=== PATIENT | female | born 1960 | race Caucasian/White ===

== ENCOUNTER → 2017-02-12 | Outpatient (CLI) | payer MEDICAID | END | disposition home or self-care (01) | LOC: RAD 16:12 | PROVIDERS: ATTEND Nurse Practitioner Family | DX: K76.0 Fatty (change of) liver, not elsewhere classified (principal); K82.8 Other specified diseases of gallbladder; R16.1 Splenomegaly, not elsewhere classified | CPT/HCPCS: 76700 ==

== ENCOUNTER 2017-08-02 16:03 | Emergency (ER) | payer MEDICAID ==
[~2017-08-02] VITALS: Ht 167.6 cm; Wt 76.5 kg
[~2017-08-02 16:03] MED LIST: FOLI-17 PO
[2017-08-02] MEDS ORDERED: SODIUM CHLORIDE FLUSH 10ML SYR IVF ONE (17:00)
[2017-08-02] MEDS ORDERED: SODIUM CHLORIDE 0.9% 1,000ML IVBOLUS ONE (17:00)
[2017-08-02 17:05] LABS: INTERNATIONAL NORMALIZED RATIO 1.51 (0.93-1.1); PROTHROMBIN TIME 15.4 Seconds (9.6-11.5)
[2017-08-02 17:08] LABS: ALANINE AMINOTRANSFERASE 30 U/L (12-78); ALBUMIN 2.6 g/dL (3.4-5.0); ANION GAP 9 mmol/L (5-15); CALCIUM 7.9 mg/dL (8.5-10.1); CHLORIDE 110 mmol/L (98-107); CREATININE 0.64 mg/dL (0.55-1.02)
[2017-08-02 17:10] LABS: RAPID INFLUENZA A Negative (Negative); RAPID INFLUENZA B Negative (Negative)
[2017-08-02 17:12] LABS: ALKALINE PHOSPHATASE 122 U/L (45-117); BILIRUBIN,TOTAL 2.9 mg/dL (0.2-1.0); TOTAL PROTEIN 7.5 g/dL (6.4-8.2); TROPONIN I < 0.015 ng/mL (0.000-0.045)
[2017-08-02 17:27] LABS: MD YES; MEAN CORPUSCULAR HEMOGLOBIN 30.2 pg (27.0-34.8); MEAN CORPUSCULAR HGB CONC 32.9 g/dL (32.4-35.8); MEAN CORPUSCULAR VOLUME 91.7 fL (80-100); MEAN PLATELET VOLUME 8.5 fL (7.4-10.4); PLATELET COUNT 119 x10^3/uL (130-400); RED BLOOD COUNT 3.13 x10^6/uL (3.82-5.3); RED CELL DISTRIBUTION WIDTH 22.2 % (9.6-15.2)
[2017-08-02 17:32] LABS: BASOS#(MANUAL) 0.04 x10^3/uL (0-0.1); BASOS% (MANUAL) 1 % (0-1); EOS#(MANUAL) 0.16 x10^3/uL (0.0-0.4); EOS% (MANUAL) 4 % (1-7); LYMPH#(MANUAL) 2.34 x10^3/uL (1-3.4); LYMPHS% (MANUAL) 57 % (22-44); MONOS#(MANUAL) 0.21 x10^3/uL (0.3-2.7); MONOS% (MANUAL) 5 % (2-9); SEG#(MANUAL) 1.35 x10^3/uL (1.8-6.8); SEGS% (MANUAL) 33 % (42-75)
[2017-08-02 17:33] LABS: ANISOCYTOSIS 1+; OVALOCYTES 1+; POLYCHROMASIA 1+
[2017-08-02 17:34] LABS: <PLATELET ESTIMATE> DECREASED; TEAR DROPS 1+
[2017-08-02 17:35] LABS: LARGE PLATELETS 1+
[2017-08-02 19:18] VITALS: BP 112/66
== END 2017-08-02 19:21 | disposition home or self-care (01) ==
LOC: ED 18:00
DX: M79.601 Pain in right arm (principal); R11.2 Nausea with vomiting, unspecified; R19.7 Diarrhea, unspecified; R07.9 Chest pain, unspecified
CPT/HCPCS: 36415; 71045; 76700; 80053; 83880; 84484; 85025; 85379; 85610; 85730; 87400; 93005; 96360; 96361; 99285; J7030

== ENCOUNTER 2018-03-06 12:07 | Emergency (ER) | payer MEDICAID ==
[~2018-03-06] VITALS: Ht 167.6 cm; Wt 75.4 kg
[2018-03-06] MEDS ORDERED: MAALOX/HYOSCYAMINE/LIDOCAINE 45 ML BTL ONE (13:25)
[2018-03-06] MEDS ORDERED: FAMOTIDINE 20 MG TABLET ONE (13:25)
[2018-03-06] MEDS ORDERED: FAMOTIDINE 20 MG TABLET PO ONE (13:30)
[2018-03-06] MEDS ORDERED: MAALOX/HYOSCYAMINE/LIDOCAINE 45 ML BTL PO ONE (13:30)
[2018-03-06 13:33] VITALS: BP 135/78
[2018-03-06 13:41] LABS: ANION GAP 8 mmol/L (5-15); CHLORIDE 111 mmol/L (98-107)
[2018-03-06 13:42] LABS: MEAN CORPUSCULAR HEMOGLOBIN 34.3 pg (27.0-34.8); MEAN CORPUSCULAR HGB CONC 32.8 g/dL (32.4-35.8); MEAN CORPUSCULAR VOLUME 104.4 fL (80-100); MEAN PLATELET VOLUME 8.8 fL (7.4-10.4); PLATELET COUNT 93 x10^3/uL (130-400); RED BLOOD COUNT 3.05 x10^6/uL (3.82-5.3); RED CELL DISTRIBUTION WIDTH 19.9 % (9.6-15.2)
[2018-03-06 13:46] LABS: ALANINE AMINOTRANSFERASE 34 U/L (12-78); ALKALINE PHOSPHATASE 175 U/L (45-117); CREATININE 0.73 mg/dL (0.55-1.02); TOTAL PROTEIN 6.4 g/dL (6.4-8.2); TROPONIN I < 0.015 ng/mL (0.000-0.045)
[2018-03-06 14:08] LABS: MD YES
[2018-03-06 14:10] LABS: BASOS#(MANUAL) 0.07 x10^3/uL (0-0.1); BASOS% (MANUAL) 2 % (0-1); EOS#(MANUAL) 0.18 x10^3/uL (0.0-0.4); EOS% (MANUAL) 5 % (1-7); LYMPH#(MANUAL) 1.65 x10^3/uL (1-3.4); LYMPHS% (MANUAL) 47 % (22-44); MONOS#(MANUAL) 0.39 x10^3/uL (0.3-2.7); MONOS% (MANUAL) 11 % (2-9); SEG#(MANUAL) 1.23 x10^3/uL (1.8-6.8); SEGS% (MANUAL) 35 % (42-75)
[2018-03-06 14:11] LABS: ANISOCYTOSIS 2+
[2018-03-06 14:12] LABS: OVALOCYTES 1+; POLYCHROMASIA 1+
[2018-03-06 14:13] LABS: <PLATELET ESTIMATE> DECREASED; <PLT MORPHOLOGY> NORMAL PLT MORPH
[2018-03-06 15:53] LABS: BILIRUBIN, DIRECT 4.9 mg/dL (0.1-0.2)
[2018-03-06 15:57] LABS: BILIRUBIN,INDIRECT 2.1 mg/dL (0.0-2.0)
[2018-03-06 17:54] LABS: % IRON SATURATION 60 % (20-55); IRON LEVEL 120 mcg/dL (50-170); TOTAL IRON BINDING CAPACITY 201 mcg/dL (250-450)
[2018-03-06 17:56] LABS: TRANSFERRIN 157 mg/dL (200-360)
[2018-03-10 16:59] LABS: ANA SCREEN POSITIVE (Negative); ANTI-NUCLEAR ANTIBODY PATTERN SPECKLED
== END 2018-03-06 17:58 | disposition home or self-care (01) ==
LOC: ED 17:40
DX: J90 Pleural effusion, not elsewhere classified (principal); K85.00 Idiopathic acute pancreatitis without necrosis or infection; E80.7 Disorder of bilirubin metabolism, unspecified; Z87.891 Personal history of nicotine dependence; Z90.49 Acquired absence of other specified parts of digestive tract
CPT/HCPCS: 36415; 71045; 74181; 76700; 80053; 80074; 82103; 82247; 82248; 83516; 83540; 83550; 83690; 84466; 84484; 85025; 85379; 86038; 86039; 93005; 99285

== ENCOUNTER 2018-04-27 15:18 | Emergency (ER) | payer MEDICAID ==
[~2018-04-27] VITALS: Ht 167.6 cm; Wt 77.0 kg
[2018-04-27 16:03] LABS: ALANINE AMINOTRANSFERASE 44 U/L (12-78); ANION GAP 8 mmol/L (5-15); CALCIUM 7.9 mg/dL (8.5-10.1); CHLORIDE 111 mmol/L (98-107); CREATININE 0.58 mg/dL (0.55-1.02)
[2018-04-27 16:05] LABS: ALKALINE PHOSPHATASE 193 U/L (45-117); BILIRUBIN,TOTAL 8.2 mg/dL (0.2-1.0); TOTAL PROTEIN 6.9 g/dL (6.4-8.2)
[2018-04-27 16:27] LABS: MEAN CORPUSCULAR HEMOGLOBIN 35.2 pg (27.0-34.8); MEAN CORPUSCULAR HGB CONC 33.1 g/dL (32.4-35.8); MEAN CORPUSCULAR VOLUME 106.4 fL (80-100); RED BLOOD COUNT 3.25 x10^6/uL (3.82-5.3); RED CELL DISTRIBUTION WIDTH 20.9 % (9.6-15.2)
[2018-04-27 16:28] LABS: MD YES; MEAN PLATELET VOLUME 8.4 fL (7.4-10.4); PLATELET COUNT 97 x10^3/uL (130-400)
[2018-04-27 16:29] LABS: CULTURE INDICATED? YES; MICROSCOPIC INDICATED
[2018-04-27 16:32] LABS: ANISOCYTOSIS 2+; BAND#(MANUAL) 0.08 x10^3/uL; BANDS%(MANUAL) 2 % (0-7); BASOS#(MANUAL) 0.08 x10^3/uL (0-0.1); BASOS% (MANUAL) 2 % (0-1); EOS#(MANUAL) 0.29 x10^3/uL (0.0-0.4); EOS% (MANUAL) 7 % (1-7); LYMPH#(MANUAL) 1.22 x10^3/uL (1-3.4); LYMPHS% (MANUAL) 29 % (22-44); MONOS#(MANUAL) 0.17 x10^3/uL (0.3-2.7); MONOS% (MANUAL) 4 % (2-9); SEG#(MANUAL) 2.35 x10^3/uL (1.8-6.8); SEGS% (MANUAL) 56 % (42-75)
[2018-04-27 16:33] LABS: <PLATELET ESTIMATE> DECREASED; <PLT MORPHOLOGY> NORMAL PLT MORPH; OVALOCYTES 1+; POLYCHROMASIA 1+
[2018-04-27] MEDS ORDERED: OMNIPAQUE 350 MG/ML, 100ML BOTTLE ONE ×2 (18:30→18:45)
[2018-04-27 20:05] VITALS: BP 112/63
== END 2018-04-27 20:08 | disposition home or self-care (01) ==
LOC: ED 17:38
DX: K40.91 Unilateral inguinal hernia, without obstruction or gangrene, recurrent (principal); K70.30 Alcoholic cirrhosis of liver without ascites; K71.7 Toxic liver disease with fibrosis and cirrhosis of liver
CPT/HCPCS: 36415; 74177; 80053; 81001; 83690; 85025; 87086; 99285; Q9967; 87077

== ENCOUNTER 2018-05-15 18:57 | Emergency (ER) | payer MEDICAID ==
[~2018-05-15] VITALS: Ht 167.6 cm; Wt 71.5 kg
[2018-05-15] MEDS ORDERED: CHLO10CA6 PO (19:29)
[2018-05-15] MEDS ORDERED: LORazepam 2 MG/ML, 1ML IVPush ONE (19:30)
[2018-05-15] MEDS ORDERED: SODIUM CHLORIDE FLUSH 10ML SYR IVF ONE (19:30)
[2018-05-15] MEDS ORDERED: ONDANSETRON 2MG/ML, 2ML IVPush ONE (19:30)
[2018-05-15] MEDS ORDERED: THIAMINE 100MG TABLET PO ONE (19:30)
[2018-05-15] MEDS ORDERED: FAMOTIDINE 20 MG/2 ML IVP ONE (19:30)
[2018-05-15] MEDS ORDERED: CHLO25CA9 PO (19:43)
[2018-05-15 19:54] LABS: ALBUMIN 1.8 g/dL (3.4-5.0); ANION GAP 8 mmol/L (5-15); CALCIUM 7.7 mg/dL (8.5-10.1); CHLORIDE 113 mmol/L (98-107); INTERNATIONAL NORMALIZED RATIO 1.92 (0.93-1.1); PROTHROMBIN TIME 19.7 Seconds (9.6-11.5)
[2018-05-15 19:57] LABS: ALANINE AMINOTRANSFERASE 38 U/L (12-78); ALKALINE PHOSPHATASE 153 U/L (45-117); BILIRUBIN,TOTAL 6.4 mg/dL (0.2-1.0); CREATININE 0.71 mg/dL (0.55-1.02); TOTAL PROTEIN 6.7 g/dL (6.4-8.2)
[2018-05-15] MEDS ORDERED: ONDANSETRON 2MG/ML, 2ML ONE (20:02)
[2018-05-15] MEDS ORDERED: THIAMINE 100MG TABLET ONE (20:02)
[2018-05-15] MEDS ORDERED: LORazepam 2 MG/ML, 1ML ONE (20:02)
[2018-05-15] MEDS ORDERED: FAMOTIDINE 20 MG/2 ML ONE (20:02)
[2018-05-15 20:18] LABS: MD YES; MEAN CORPUSCULAR HEMOGLOBIN 35.2 pg (27.0-34.8); MEAN CORPUSCULAR VOLUME 106.5 fL (80-100); MEAN PLATELET VOLUME 7.9 fL (7.4-10.4); PLATELET COUNT 98 x10^3/uL (130-400); RED BLOOD COUNT 3.17 x10^6/uL (3.82-5.3); RED CELL DISTRIBUTION WIDTH 20.8 % (9.6-15.2)
[2018-05-15 20:29] LABS: BAND#(MANUAL) 0.04 x10^3/uL; BANDS%(MANUAL) 1 % (0-7); BASOS#(MANUAL) 0.04 x10^3/uL (0-0.1); BASOS% (MANUAL) 1 % (0-1); EOS#(MANUAL) 0.16 x10^3/uL (0.0-0.4); EOS% (MANUAL) 4 % (1-7); LYMPHS% (MANUAL) 44 % (22-44); MONOS#(MANUAL) 0.37 x10^3/uL (0.3-2.7); MONOS% (MANUAL) 9 % (2-9); SEG#(MANUAL) 1.68 x10^3/uL (1.8-6.8); SEGS% (MANUAL) 41 % (42-75)
[2018-05-15 20:30] LABS: ANISOCYTOSIS 1+
[2018-05-15 20:31] LABS: OVALOCYTES 1+; POLYCHROMASIA 1+
[2018-05-15 20:32] LABS: <PLATELET ESTIMATE> DECREASED; <PLT MORPHOLOGY> NORMAL PLT MORPH
[2018-05-15 21:01] LABS: CULTURE INDICATED? YES; MICROSCOPIC INDICATED
[2018-05-15 22:17] VITALS: BP 105/61
== END 2018-05-15 22:37 | disposition home or self-care (01) ==
LOC: ED 21:27
DX: F10.239 Alcohol dependence with withdrawal, unspecified (principal); Z90.49 Acquired absence of other specified parts of digestive tract
CPT/HCPCS: 36415; 80053; 81001; 83690; 85025; 85610; 87086; 93005; 96374; 96375; 99285; J2060; J2405; J3490

== ENCOUNTER 2018-11-05 17:52 | Inpatient (IN) | payer MEDICAID ==
[~2018-11-05] VITALS: Ht 170.2 cm; Wt 70.0 kg
[~2018-11-05 17:52] MED LIST changes: +CHLO10CA6 PO; +CHLO25CA9 PO
[2018-11-05] MEDS ORDERED: SODIUM CHLORIDE FLUSH 10ML SYR IVF ONE (18:00)
--- NOTE | 2018-11-05 18:08 | NUR ---
EKG COMPLETED IN TRIAGE
--- NOTE | 2018-11-05 18:18 | NUR ---
XRAY AT BEDSIDE.
[2018-11-05] MEDS ORDERED: FOLI0.4T2 PO (18:25)
--- NOTE | 2018-11-05 18:26 | NUR ---
PATIENT PRESENTS TO ED TODAY FOR NAUSEA, DIZZINESS, CP X 2 WEEKS, PROGRESSIVELY WORSE PAST 3 DAYS, RAPID HR. CAR REPAIRMAN ON PATIENT, NAD NOTED. HX OF CIRRHOSIS. MD AT BEDSIDE, AWAITING MD ORDERS. CALL LIGHT WITHIN REACH, FAMILY AT BEDSIDE.
[2018-11-05 18:32] LABS: ALANINE AMINOTRANSFERASE 48 U/L (12-78); ALBUMIN 2.1 g/dL (3.4-5.0); ANION GAP 9 mmol/L (5-15); CALCIUM 7.6 mg/dL (8.5-10.1); CHLORIDE 111 mmol/L (98-107)
[2018-11-05 18:37] LABS: ALKALINE PHOSPHATASE 140 U/L (45-117); BILIRUBIN,TOTAL 11.3 mg/dL (0.2-1.0); CREATININE 0.79 mg/dL (0.55-1.02); TOTAL PROTEIN 6.1 g/dL (6.4-8.2); TROPONIN I < 0.015 ng/mL (0.000-0.045)
[2018-11-05 18:38] LABS: MEAN CORPUSCULAR HGB CONC 34.1 g/dL (32.4-35.8); MEAN CORPUSCULAR VOLUME 111.4 fL (80-100); MEAN PLATELET VOLUME 7.8 fL (7.4-10.4); PLATELET COUNT 73 x10^3/uL (130-400); RED BLOOD COUNT 3.18 x10^6/uL (3.82-5.3); RED CELL DISTRIBUTION WIDTH 16.8 % (9.6-15.2)
[2018-11-05] MEDS ORDERED: MORPHINE SULFATE 4 MG/ML, 1ML IVPush PRN (19:00)
[2018-11-05] MEDS ORDERED: ASPIRIN 81 MG TABLET CHEW PO ONE (19:00)
[2018-11-05] MEDS ORDERED: ONDANSETRON 2MG/ML, 2ML IVPush ONE (19:00)
[2018-11-05] MEDS ORDERED: ASPIRIN 81 MG TABLET CHEW ONE (19:05)
--- NOTE | 2018-11-05 19:08 | NUR ---
MD AT BEDSIDE, PATIENT TO BE ADMITTED. PATIENT REFUSING PAIN MEDS AND ZOFRAN. PATIENT/FAMILY UPDATED ON POC.
[2018-11-05 19:19] LABS: BASOPHILS # (AUTO) 0.08 x10^3/uL (0-0.1); BASOPHILS % (AUTO) 2 % (0-1); EOSINOPHILS # (AUTO) 0.17 x10^3/uL (0-0.4); EOSINOPHILS % (AUTO) 4 % (1-7); LYMPHOCYTES # (AUTO) 1.49 x10^3/uL (1-3.4); LYMPHOCYTES % (AUTO) 34 % (22-44); MD MORPH REVIEW ONLY; MONOCYTES # (AUTO) 0.43 x10^3/uL (0.2-0.8); MONOCYTES % (AUTO) 10 % (2-9); NEUTROPHILS # (AUTO) 2.23 x10^3/uL (1.8-6.8); NEUTROPHILS % (AUTO) 51 % (42-75)
[2018-11-05 19:20] LABS: OVALOCYTES 1+; POLYCHROMASIA 1+; TEAR DROPS 1+
[2018-11-05 19:21] LABS: <PLATELET ESTIMATE> DECREASED; <PLT MORPHOLOGY> NORMAL PLT MORPH
[2018-11-05 19:44] LABS: ANISOCYTOSIS 1+
[2018-11-05] MEDS ORDERED: OXYcodone IR 5MG TABLET PO PRN (20:30)
[2018-11-05] MEDS ORDERED: hydrALAzine 20 MG/ML, 1ML IVPush PRN (20:30)
[2018-11-05 20:31] VITALS: BP 106/66
[2018-11-05 21:03] LABS: INTERNATIONAL NORMALIZED RATIO 2.07 (0.93-1.1); PROTHROMBIN TIME 21.1 Seconds (9.6-11.5)
[2018-11-06 00:46] LABS: TROPONIN I 0.016 ng/mL (0.000-0.045)
[2018-11-06 01:21] LABS: FOLATE LEVEL > 20.0 ng/mL (3.1-17.5)
[2018-11-06 02:30] VITALS: BP 92/55
[2018-11-06] MEDS ORDERED: POTASSIUM CHLORIDE 20 MEQ TAB.ER.PRT PO ONE (03:00)
[2018-11-06] MEDS ORDERED: SODIUM CHLORIDE 0.9%, 250ML IVBOLUS ONE (03:00)
[2018-11-06 04:15] VITALS: BP 93/53
[2018-11-06 06:29] LABS: MEAN CORPUSCULAR HGB CONC 34.4 g/dL (32.4-35.8); MEAN CORPUSCULAR VOLUME 110.6 fL (80-100); RED BLOOD COUNT 2.76 x10^6/uL (3.82-5.3); RED CELL DISTRIBUTION WIDTH 16.5 % (9.6-15.2)
[2018-11-06 06:39] LABS: ALANINE AMINOTRANSFERASE 41 U/L (12-78); ALBUMIN 1.7 g/dL (3.4-5.0); ANION GAP 8 mmol/L (5-15); CALCIUM 7.4 mg/dL (8.5-10.1); CHLORIDE 116 mmol/L (98-107); CREATININE 0.56 mg/dL (0.55-1.02)
[2018-11-06 06:41] LABS: ALKALINE PHOSPHATASE 127 U/L (45-117); BILIRUBIN,TOTAL 8.4 mg/dL (0.2-1.0); HDL CHOLESTEROL (DIRECT) 20 mg/dL (40-60)
[2018-11-06 06:43] LABS: TRIGLYCERIDES 64 mg/dL (50-200); VLDL CHOLESTEROL 13 mg/dL (0-25)
[2018-11-06 06:44] LABS: CHOL/HDL RATIO 2.5; CHOLESTEROL, TOTAL < 50 mg/dL (140-239); HDL CHOL % 0 % (28-40); LDL CHOLESTEROL,CALCULATED 17 mg/dL (54-169); LDL/HDL RATIO 0.9 (0.5-3.0)
[2018-11-06 06:55] LABS: BASOPHILS # (AUTO) 0.05 x10^3/uL (0-0.1); BASOPHILS % (AUTO) 2 % (0-1); EOSINOPHILS % (AUTO) 6 % (1-7); LYMPHOCYTES # (AUTO) 1.19 x10^3/uL (1-3.4); LYMPHOCYTES % (AUTO) 39 % (22-44); MD SCAN; MEAN PLATELET VOLUME 8.2 fL (7.4-10.4); MONOCYTES % (AUTO) 13 % (2-9); NEUTROPHILS # (AUTO) 1.26 x10^3/uL (1.8-6.8); NEUTROPHILS % (AUTO) 41 % (42-75); PLATELET COUNT 61 x10^3/uL (130-400)
[2018-11-06 09:11] VITALS: BP 98/63
[2018-11-06 11:57] LABS: FREE T4 (FREE THYROXINE) 1.39 ng/dL (0.76-1.46)
[2018-11-06] MEDS ORDERED: REGADENOSON 0.4 MG/5 ML SYRINGE ONE (12:50)
[2018-11-06 16:26] VITALS: BP 121/76
[2018-11-06 20:39] VITALS: BP 102/60
[2018-11-07 01:18] VITALS: BP 105/63
[2018-11-07 05:24] LABS: MEAN CORPUSCULAR HGB CONC 34.1 g/dL (32.4-35.8); MEAN CORPUSCULAR VOLUME 111.4 fL (80-100); MEAN PLATELET VOLUME 7.6 fL (7.4-10.4); PLATELET COUNT 57 x10^3/uL (130-400); RED BLOOD COUNT 2.69 x10^6/uL (3.82-5.3); RED CELL DISTRIBUTION WIDTH 17.2 % (9.6-15.2)
[2018-11-07 05:29] LABS: ALBUMIN 1.7 g/dL (3.4-5.0); ANION GAP 6 mmol/L (5-15); CALCIUM 7.3 mg/dL (8.5-10.1); CHLORIDE 115 mmol/L (98-107)
[2018-11-07 05:34] LABS: ALANINE AMINOTRANSFERASE 41 U/L (12-78); ALKALINE PHOSPHATASE 141 U/L (45-117); BILIRUBIN,TOTAL 8.2 mg/dL (0.2-1.0); CREATININE 0.66 mg/dL (0.55-1.02); TOTAL PROTEIN 5.3 g/dL (6.4-8.2)
[2018-11-07 06:32] LABS: BASOPHILS # (AUTO) 0.05 x10^3/uL (0-0.1); BASOPHILS % (AUTO) 1 % (0-1); EOSINOPHILS # (AUTO) 0.18 x10^3/uL (0-0.4); EOSINOPHILS % (AUTO) 5 % (1-7); LYMPHOCYTES # (AUTO) 1.34 x10^3/uL (1-3.4); LYMPHOCYTES % (AUTO) 36 % (22-44); MD MORPH REVIEW ONLY; MONOCYTES # (AUTO) 0.43 x10^3/uL (0.2-0.8); MONOCYTES % (AUTO) 12 % (2-9); NEUTROPHILS # (AUTO) 1.67 x10^3/uL (1.8-6.8); NEUTROPHILS % (AUTO) 46 % (42-75)
[2018-11-07 06:33] LABS: ANISOCYTOSIS 2+; OVALOCYTES 1+; SCHISTOCYTES 1+; TEAR DROPS 1+
[2018-11-07 06:34] LABS: <PLATELET ESTIMATE> DECREASED; <PLT MORPHOLOGY> NORMAL PLT MORPH; POLYCHROMASIA 1+
[2018-11-07 08:48] VITALS: BP 107/64
[2018-11-07] MEDS ORDERED: ERGOCALCIFEROL 50,000 UNIT CAPSULE PO SCH (10:30)
[2018-11-07 13:37] VITALS: BP 117/73
[2018-11-07 18:26] VITALS: BP 117/74
[2018-11-08 02:11] VITALS: BP 110/68
[2018-11-08 09:30] VITALS: BP 109/69
[2018-11-08 12:36] VITALS: BP 108/66
[2018-11-08] MEDS ORDERED: LIDOCAINE-MPF 1%, 5ML ONE (14:00)
[2018-11-08] MEDS ORDERED: ERGO500017 PO (15:56)
[2018-11-08] MEDS ORDERED: FURO-93 PO (15:56)
[2018-11-08] MEDS ORDERED: SPIR25TA PO (15:56)
== END 2018-11-08 17:25 | disposition home or self-care (01) | DRG 432 ==
LOC: ED 19:22 → EDIP 20:02 → 5SO 20:54 → 4NOR 11-07 18:20
PROVIDERS: ADMIT Family Medicine; ATTEND Family Medicine
DX: K70.31 Alcoholic cirrhosis of liver with ascites (principal); E43 Unspecified severe protein-calorie malnutrition; D68.59 Other primary thrombophilia; I31.3 Pericardial effusion (noninflammatory); R07.89 Other chest pain; D53.9 Nutritional anemia, unspecified; D69.59 Other secondary thrombocytopenia; Z68.23 Body mass index [BMI] 23.0-23.9, adult; E55.9 Vitamin D deficiency, unspecified; F10.21 Alcohol dependence, in remission; K83.8 Other specified diseases of biliary tract; Z86.711 Personal history of pulmonary embolism; Z90.49 Acquired absence of other specified parts of digestive tract
CPT/HCPCS: 36415; 49083; 71045; 74181; 76700; 78452; 80053; 80061; 82306; 82607; 82746; 83735; 83880; 84100; 84439; 84443; 84484; 85025; 85610; 93005; 93017; 93306; G0378; J2785; A9502; C9898; J7050

== ENCOUNTER 2019-01-01 18:20 | Inpatient (IN) | payer MEDICAID ==
[~2019-01-01] VITALS: Ht 167.6 cm; Wt 67.4 kg
[~2019-01-01 18:20] MED LIST changes: +ERGO500017 PO; +FOLI0.4T2 PO; +FURO-93 PO; +SPIR25TA PO
--- NOTE | 2019-01-01 18:43 | NUR ---
PT TO ROOM AT THIS TIME
--- NOTE | 2019-01-01 19:08 | NUR ---
RECEIVED REPORT FROM RADHA MOLINA. PATIENT C/O SOB AND COUGH X 1 WEEK. ASCITES NOTED. + JAUNDICE.
--- NOTE | 2019-01-01 19:18 | NUR ---
ERP at bedside.
[2019-01-01 19:35] LABS: ALBUMIN 1.9 g/dL (3.4-5.0); ANION GAP 10 mmol/L (5-15); CALCIUM 7.7 mg/dL (8.5-10.1); CHLORIDE 90 mmol/L (98-107); INTERNATIONAL NORMALIZED RATIO 2.45 (0.93-1.1); PROTHROMBIN TIME 24.9 Seconds (9.6-11.5)
[2019-01-01 19:41] LABS: ALANINE AMINOTRANSFERASE 44 U/L (12-78); ALKALINE PHOSPHATASE 159 U/L (45-117); CREATININE 0.66 mg/dL (0.55-1.02); TOTAL PROTEIN 6.6 g/dL (6.4-8.2); TROPONIN I < 0.015 ng/mL (0.000-0.045)
[2019-01-01 19:43] LABS: BILIRUBIN,TOTAL 15.5 mg/dL (0.2-1.0)
[2019-01-01] MEDS ORDERED: SPIR100T4 PO (20:16)
[2019-01-01] MEDS ORDERED: FURO20TA3 PO (20:16)
[2019-01-01] MEDS ORDERED: FOLI-17 PO (20:16)
[2019-01-01] MEDS ORDERED: ALBU90AE INH (20:18)
[2019-01-01 20:28] LABS: BASOPHILS # (AUTO) 0.03 x10^3/uL (0-0.1); BASOPHILS % (AUTO) 1 % (0-1); EOSINOPHILS # (AUTO) 0.01 x10^3/uL (0-0.4); EOSINOPHILS % (AUTO) 0 % (1-7); LYMPHOCYTES % (AUTO) 14 % (22-44); MD NO; MEAN CORPUSCULAR HEMOGLOBIN 38.7 pg (27.0-34.8); MEAN CORPUSCULAR HGB CONC 33.8 g/dL (32.4-35.8); MEAN CORPUSCULAR VOLUME 114.2 fL (80-100); MEAN PLATELET VOLUME 7.8 fL (7.4-10.4); MONOCYTES % (AUTO) 18 % (2-9); NEUTROPHILS % (AUTO) 67 % (42-75); PLATELET COUNT 68 x10^3/uL (130-400); RED BLOOD COUNT 3.23 x10^6/uL (3.82-5.3); RED CELL DISTRIBUTION WIDTH 16.5 % (9.6-15.2)
--- NOTE | 2019-01-01 20:48 | NUR ---
patient to Imaging for thoracentesis.
--- NOTE | 2019-01-01 21:36 | NUR ---
back from Imaging. 2 .4 L fluids removed from lung.
--- NOTE | 2019-01-01 21:59 | NUR ---
bed assigned. report to RADHA Blount.
[2019-01-01 22:38] VITALS: BP 107/67
[2019-01-01] MEDS ORDERED: ERGOCALCIFEROL 50,000 UNIT CAPSULE PO SCH (23:30)
[2019-01-02] MEDS ORDERED: POTASSIUM CHLORIDE 20 MEQ TAB.ER.PRT PO ONE
[2019-01-02 00:13] LABS: ANION GAP 10 mmol/L (5-15); CALCIUM 7.9 mg/dL (8.5-10.1); CHLORIDE 90 mmol/L (98-107); CREATININE 0.66 mg/dL (0.55-1.02)
[2019-01-02 01:33] VITALS: BP 123/75
[2019-01-02 01:35] VITALS: BP 136/82
[2019-01-02 01:36] VITALS: BP 136/85
[2019-01-02 05:47] LABS: ALBUMIN 1.7 g/dL (3.4-5.0); ANION GAP 9 mmol/L (5-15); CHLORIDE 91 mmol/L (98-107)
[2019-01-02 05:55] LABS: ALANINE AMINOTRANSFERASE 37 U/L (12-78); ALKALINE PHOSPHATASE 136 U/L (45-117); BILIRUBIN,TOTAL 14.4 mg/dL (0.2-1.0); CALCIUM 7.6 mg/dL (8.5-10.1); CREATININE 0.54 mg/dL (0.55-1.02); TOTAL PROTEIN 5.9 g/dL (6.4-8.2)
[2019-01-02 06:02] LABS: MEAN CORPUSCULAR HEMOGLOBIN 38.2 pg (27.0-34.8); MEAN CORPUSCULAR HGB CONC 33.8 g/dL (32.4-35.8); MEAN CORPUSCULAR VOLUME 113.1 fL (80-100); RED BLOOD COUNT 2.92 x10^6/uL (3.82-5.3); RED CELL DISTRIBUTION WIDTH 16.5 % (9.6-15.2)
[2019-01-02 06:29] LABS: MEAN PLATELET VOLUME 7.6 fL (7.4-10.4)
[2019-01-02 06:32] LABS: BASOPHILS # (AUTO) 0.01 x10^3/uL (0-0.1); BASOPHILS % (AUTO) 0 % (0-1); EOSINOPHILS # (AUTO) 0.02 x10^3/uL (0-0.4); EOSINOPHILS % (AUTO) 0 % (1-7); LYMPHOCYTES # (AUTO) 0.51 x10^3/uL (1-3.4); LYMPHOCYTES % (AUTO) 9 % (22-44); MD MORPH REVIEW ONLY; MONOCYTES # (AUTO) 0.99 x10^3/uL (0.2-0.8); MONOCYTES % (AUTO) 19 % (2-9); NEUTROPHILS # (AUTO) 3.83 x10^3/uL (1.8-6.8); NEUTROPHILS % (AUTO) 72 % (42-75)
[2019-01-02 06:34] LABS: ANISOCYTOSIS 1+; PLATELET COUNT 49 x10^3/uL (130-400)
[2019-01-02 06:35] LABS: OVALOCYTES 1+; POLYCHROMASIA 1+; TEAR DROPS 1+
[2019-01-02 06:36] LABS: PMNS WITH VACUOLES 1+
[2019-01-02 06:37] LABS: <PLATELET ESTIMATE> DECREASED; <PLT MORPHOLOGY> NORMAL PLT MORPH
[2019-01-02 06:39] VITALS: BP 103/63
[2019-01-02 08:45] LABS: ANION GAP 7 mmol/L (5-15); CALCIUM 7.6 mg/dL (8.5-10.1); CHLORIDE 92 mmol/L (98-107); CREATININE 0.55 mg/dL (0.55-1.02)
[2019-01-02] MEDS: FOLIC ACID 1 MG TABLET PO SCH (08:48)
[2019-01-02] MEDS: FAMOTIDINE 20 MG TABLET PO SCH ×2 (08:48→21:11)
[2019-01-02] MEDS: SODIUM CHLORIDE FLUSH 10ML SYR IVF SCH ×2 (08:51→21:12)
[2019-01-02] MEDS ORDERED: ONDANSETRON 2MG/ML, 2ML IVPush PRN (12:30)
[2019-01-02 12:33] VITALS: BP 106/61
[2019-01-02 18:36] VITALS: BP 102/63
[2019-01-03 01:14] VITALS: BP 105/64
[2019-01-03 01:15] VITALS: BP 110/67
[2019-01-03 01:17] VITALS: BP 104/69
[2019-01-03 08:02] VITALS: BP 98/58
[2019-01-03] MEDS: FAMOTIDINE 20 MG TABLET PO SCH ×2 (08:05→22:00)
[2019-01-03] MEDS: FOLIC ACID 1 MG TABLET PO SCH (08:05)
[2019-01-03] MEDS: SODIUM CHLORIDE FLUSH 10ML SYR IVF SCH ×2 (08:05→22:00)
[2019-01-03 13:19] VITALS: BP 106/65
[2019-01-03 19:51] VITALS: BP 101/64
[2019-01-04 02:15] VITALS: BP 110/72
[2019-01-04 08:49] VITALS: BP 102/63
[2019-01-04] MEDS: FAMOTIDINE 20 MG TABLET PO SCH ×2 (09:00→21:00)
[2019-01-04] MEDS: SODIUM CHLORIDE FLUSH 10ML SYR IVF SCH ×2 (09:00→21:24)
[2019-01-04 09:49] LABS: ALBUMIN 1.8 g/dL (3.4-5.0); ANION GAP 6 mmol/L (5-15); CALCIUM 7.4 mg/dL (8.5-10.1); CHLORIDE 89 mmol/L (98-107)
[2019-01-04 09:53] LABS: ALANINE AMINOTRANSFERASE 44 U/L (12-78); ALKALINE PHOSPHATASE 160 U/L (45-117); BILIRUBIN,TOTAL 13.8 mg/dL (0.2-1.0); CREATININE 0.62 mg/dL (0.55-1.02); TOTAL PROTEIN 5.9 g/dL (6.4-8.2)
[2019-01-04 10:17] LABS: MEAN CORPUSCULAR HEMOGLOBIN 39.2 pg (27.0-34.8); MEAN CORPUSCULAR HGB CONC 33.9 g/dL (32.4-35.8); MEAN CORPUSCULAR VOLUME 115.6 fL (80-100); MEAN PLATELET VOLUME 7.4 fL (7.4-10.4); PLATELET COUNT 65 x10^3/uL (130-400); RED BLOOD COUNT 3.15 x10^6/uL (3.82-5.3); RED CELL DISTRIBUTION WIDTH 16.7 % (9.6-15.2)
[2019-01-04 10:18] LABS: BASOPHILS # (AUTO) 0.01 x10^3/uL (0-0.1); BASOPHILS % (AUTO) 0 % (0-1); EOSINOPHILS # (AUTO) 0.05 x10^3/uL (0-0.4); EOSINOPHILS % (AUTO) 1 % (1-7); LYMPHOCYTES # (AUTO) 0.57 x10^3/uL (1-3.4); LYMPHOCYTES % (AUTO) 14 % (22-44); MD MORPH REVIEW ONLY; MONOCYTES # (AUTO) 0.46 x10^3/uL (0.2-0.8); MONOCYTES % (AUTO) 11 % (2-9); NEUTROPHILS # (AUTO) 3.05 x10^3/uL (1.8-6.8); NEUTROPHILS % (AUTO) 74 % (42-75)
[2019-01-04 10:19] LABS: ANISOCYTOSIS 1+; OVALOCYTES 1+; POLYCHROMASIA 1+; TEAR DROPS 1+
[2019-01-04 10:20] LABS: <PLATELET ESTIMATE> DECREASED; <PLT MORPHOLOGY> NORMAL PLT MORPH
[2019-01-04] MEDS: FOLIC ACID 1 MG TABLET PO SCH (10:51)
[2019-01-04 14:20] VITALS: BP 109/68
[2019-01-04] MEDS ORDERED: ALBUTEROL SULFATE 2.5 MG/3 ML NPPB SCH (15:00)
[2019-01-04] MEDS ORDERED: ERGOCALCIFEROL 50,000 UNIT CAPSULE PO SCH (15:00)
[2019-01-04] MEDS: FUROSEMIDE 40 MG TABLET PO SCH (16:12)
[2019-01-04] MEDS: SPIRONOLACTONE 100 MG TABLET PO SCH (16:12)
[2019-01-04] MEDS ORDERED: DIPHENHYDRAMINE 50 MG CAPSULE PO PRN (20:00)
[2019-01-04 20:18] VITALS: BP 108/66
[2019-01-04 21:28] VITALS: BP 105/66
[2019-01-04] MEDS ORDERED: ALUMINUM/MAG/SIMETHICONE 30 ML UDC PO ONE (22:00)
[2019-01-04 22:34] LABS: TROPONIN I < 0.015 ng/mL (0.000-0.045)
[2019-01-05 01:20] VITALS: BP 121/74
[2019-01-05 04:44] LABS: ALBUMIN 1.9 g/dL (3.4-5.0); ANION GAP 6 mmol/L (5-15); CALCIUM 7.6 mg/dL (8.5-10.1); CHLORIDE 88 mmol/L (98-107)
[2019-01-05 04:49] LABS: ALANINE AMINOTRANSFERASE 47 U/L (12-78); ALKALINE PHOSPHATASE 185 U/L (45-117); CREATININE 0.56 mg/dL (0.55-1.02); TOTAL PROTEIN 6.3 g/dL (6.4-8.2); TROPONIN I < 0.015 ng/mL (0.000-0.045)
[2019-01-05 04:53] LABS: BILIRUBIN,TOTAL 15.7 mg/dL (0.2-1.0)
[2019-01-05 05:10] LABS: MEAN CORPUSCULAR HGB CONC 33.6 g/dL (32.4-35.8); PLATELET COUNT 66 x10^3/uL (130-400); RED BLOOD COUNT 3.19 x10^6/uL (3.82-5.3); RED CELL DISTRIBUTION WIDTH 16.7 % (9.6-15.2)
[2019-01-05 05:34] LABS: MD YES
[2019-01-05 05:41] LABS: ANISOCYTOSIS 1+; LYMPH#(MANUAL) 0.66 x10^3/uL (1-3.4); LYMPHS% (MANUAL) 13 % (22-44); METAMYELOCYTES# (MANUAL) 0.05 x10^3/uL (0-0); METAMYELOCYTES% (MANUAL) 1 % (0-1); MONOS#(MANUAL) 0.87 x10^3/uL (0.3-2.7); MONOS% (MANUAL) 17 % (2-9); MYELOCYTES# (MANUAL) 0.15 x10^3/uL (0-0); MYELOCYTES% (MANUAL) 3 % (0-0); OVALOCYTES 1+; SEG#(MANUAL) 3.37 x10^3/uL (1.8-6.8); SEGS% (MANUAL) 66 % (42-75)
[2019-01-05 05:42] LABS: POLYCHROMASIA 1+; TEAR DROPS 1+
[2019-01-05 05:43] LABS: <PLATELET ESTIMATE> DECREASED; <PLT MORPHOLOGY> NORMAL PLT MORPH
[2019-01-05 06:50] VITALS: BP 106/65
[2019-01-05] MEDS ORDERED: FOLIC ACID 1 MG TABLET PO SCH (09:00)
[2019-01-05] MEDS: FAMOTIDINE 20 MG TABLET PO SCH (09:20)
[2019-01-05] MEDS: SPIRONOLACTONE 100 MG TABLET PO SCH (09:20)
[2019-01-05] MEDS: FUROSEMIDE 40 MG TABLET PO SCH (09:20)
[2019-01-05] MEDS: SODIUM CHLORIDE FLUSH 10ML SYR IVF SCH (09:21)
[2019-01-05 12:29] VITALS: BP 107/69
[2019-01-06] MEDS ORDERED: LINE600T37 PO (06:38)
== END 2019-01-05 14:50 | disposition home or self-care (01) | DRG 177 ==
LOC: ED 20:00 → 4EST 21:55 → DCLOUNGE 01-05 14:30
PROVIDERS: ADMIT Internal Medicine; ATTEND Internal Medicine
PROC: 0W993ZZ Drainage of Right Pleural Cavity, Percutaneous Approach (ICD-10-PCS; principal; 2019-01-01)
DX: J15.211 Pneumonia due to Methicillin susceptible Staphylococcus aureus (principal); J96.01 Acute respiratory failure with hypoxia; E43 Unspecified severe protein-calorie malnutrition; J91.8 Pleural effusion in other conditions classified elsewhere; E87.1 Hypo-osmolality and hyponatremia; D68.59 Other primary thrombophilia; K70.31 Alcoholic cirrhosis of liver with ascites; F10.10 Alcohol abuse, uncomplicated; R71.8 Other abnormality of red blood cells; K72.10 Chronic hepatic failure without coma; E55.9 Vitamin D deficiency, unspecified; D69.59 Other secondary thrombocytopenia; D69.6 Thrombocytopenia, unspecified; E87.6 Hypokalemia; Z86.711 Personal history of pulmonary embolism; Z80.0 Family history of malignant neoplasm of digestive organs; Z80.8 Family history of malignant neoplasm of other organs or systems; Z87.891 Personal history of nicotine dependence
CPT/HCPCS: 32555; 36415; 71045; 71270; 74181; 76705; 80048; 80053; 82140; 83735; 83880; 84100; 84484; 85025; 85610; 85730; 86704; 86706; 86708; 86803; 87070; 87077; 87186; 87205; 87340; 93005; 93308; 93321; 93325; 99285; G0378; J2405